=== PATIENT | male | born 1960 | race Caucasian/White ===

== ENCOUNTER 2016-12-21 14:00 | Inpatient (IN) | payer OTHER ==
[~2016-12-21] VITALS: Ht 180.3 cm; Wt 64.2 kg
--- NOTE | ~2016-12-21 | ECHO ---
Transthoracic Echocardiography Report (TTE) Demographics Patient Name ANTIONE FITCH Date of Study 12/22/2016 Patient Number [id number] Visit Number [id number] Date of 1960 Room Number G6337 Gender Male Number Age 56 year(s) Referring Nick Mccray MD Soil Science Teacher Ruiz Elder [facility] Physician Horace Ireland MD Physician Interpreting Belia Batista Air Export Agent Physician Supervising Ordering Horace Ireland MD/MLP Physician Nurse Stress Forming Process Worker Conclusions Contractility Score Summary At rest the following contractility abnormalities were noted: Hypokinesis of the Mid jey-lateral, the Mid anterior, the Basal anterior and the Basal jey-lateral segments. Contractility of all other segments appeared normal. Summary Normal LV wall thickness,internal dimension,EF and WM. Trace TR not adequate to measure pulmonary pressures accurately. Procedure Type of Study TTE procedure:2D Echocardiogram, M-Mode, Doppler , Color Doppler. Procedure Date Date: 12/22/2016 Start: 09:08 AM Study Location: Inpatient Portable Technical Quality: Adequate visualization Indications:Dyspnea/SOB and Coronary artery disease. Patient Status: Routine Rhythm: Sinus tachycardia HR: 92 bpm BP: 120/67 mmHg Allergies - Penicillin. M-Mode/2D Measurements LV Diastolic Dimension: 2.97 cm LV Systolic Dimension: 2.63 cm LV Septum Diastolic: 0.93 cm LV PW Diastolic: 0.9 cm AO Root Dimension: 2.7 cm Cardiac Output: 4.26 l/min AV Cusp Separation: 1.5 cm RV Diastolic Dimension: 2.45 cm LA volume: 31 ml MV EPSS: 0.8 cm LVOT: 1.8 cm RV Base: 3.01 cm LVOT VTI: 18.2 cm RV Mid: 2.2 cm LV Stroke volume: 46.29 ml TAPSE: 2.9 cm TDI-S': 16 cm/s Doppler Measurements AV Peak Velocity: 1.06 m/s MV Peak E-Wave: 0.72 m/s AV Peak Gradient: 4.49 mmHg MV Peak A-Wave: 0.97 m/s AV Mean Gradient: 2 mmHg MV E/A Ratio: 0.74 LVOT Peak Velocity: 0.96 m/s MV P1/2t: 63 msec TR Gradient:20.07 mmHg PV Peak Velocity: 1.3 m/s Estimated RAP:5 mmHg PV Peak Gradient: 6.76 mmHg Estimated RVSP: 25 mmHg Estimated PASP: 25.07 mmHg E' Septal Velocity: 0.1 m/s A' Septal Velocity: 0.14 m/s E' Lateral Velocity: 0.1 m/s A' Lateral Velocity: 0.12 m/s Findings Left Ventricle Normal left ventricle size and function. Right Ventricle Normal right ventricle structure and function. Left Atrium Normal left atrial size. Right Atrium Normal right atrial size. Mitral Valve Normal mitral valve structure and function. Aortic Valve Normal aortic valve structure and function. Tricuspid Valve Trivial tricuspid regurgitation by color Doppler. Pulmonic Valve The pulmonic valve is not well visualized doppler through the valve is normal. Pericardial Effusion No evidence of pericardial effusion. Miscellaneous Visualized portions of the aortic root and ascending aorta appear normal in size. Pleural Effusion No evidence of pleural effusion. Signature dtt: Lynne Celaya dtd: 12/22/16 0908 Physician Self Edit
--- NOTE | ~2016-12-21 | HP ---
PATIENT'S NAME: ANTIONE FITCH [facility] AGE: 56 Y [address] ROOM: [place] [address] LOCATION: GPCU ADMIT DATE: 12/21/2016 History & Physical DISCHARGE DATE: FAMILY PHYSICIAN: PHYSICIAN, UNKNOWN ATTENDING PHYSICIAN: NILA DARNELL V DATE OF SERVICE: CHIEF COMPLAINT: Shortness of breath. HISTORY OF PRESENT ILLNESS: The patient is a transfer from [facility]. This is a 56- year-old male with past medical history of coronary artery disease with stents approximately 7 years ago, who presented to the hospital with approximately 24- 36 hours of complaints of shortness of breath, productive cough, and orthopnea. At the outside facility, the patient was found to be saturating in the 70s on room air. He had a workup which included a chest x-ray showing hyperinflation, ABG showing hypoxia but no CO2 retention, and unremarkable 2 sets of cardiac enzymes and an EKG. He was transferred to [facility] with presumed diagnosis of COPD exacerbation, though he does not carry that diagnosis. At this point, the patient feels considerably better and he is saturating mid 90s on 2 L nasal cannula. REVIEW OF SYSTEMS: He denies any chest pain, nausea, vomiting, diaphoresis, or syncope. PAST MEDICAL HISTORY: Significant for coronary artery disease, status post coronary stenting x2 seven years ago, that is what the patient volunteers. FAMILY HISTORY: Significant for a strong family of heart disease on both sides of the family. SOCIAL HISTORY: He has approximately [id number] of tobacco use, having quit 10 years ago. Denies any toxic habits. He is employed in a [employer] store. CURRENT MEDICATIONS: 1. Aspirin full dose. 2. Metoprolol. 3. Atorvastatin. 4. Cetirizine. PATIENT'S NAME: ANTIONE FITCH [facility] AGE: 56 Y [address] ROOM: [place] [address] LOCATION: GPCU ADMIT DATE: 12/21/2016 History & Physical DISCHARGE DATE: FAMILY PHYSICIAN: PHYSICIAN, UNKNOWN ATTENDING PHYSICIAN: NILA DARNELL V PHYSICAL EXAMINATION: VITAL SIGNS: Temperature 98.6, pulse is 99, respirations are 16, blood pressure is 158/73, and saturating 92% on 4 L nasal cannula. GENERAL APPEARANCE: A well-developed, well-nourished middle-aged male, in no acute distress. EYES: Exam shows pupils are equal and reactive to light. LYMPHATIC: Exam shows no cervical lymphadenopathy. ENDOCRINE: Exam shows no thyromegaly. NEUROLOGICAL: Exam is intact. ENT: Exam reveals no stridor. Some pharyngeal erythema. LUNGS: Exam reveals diffuse expiratory wheezing in all alves. HEART: Exam reveals slight tachycardia with no appreciable murmurs, gallops, or rubs. GI: Exam shows abdomen is soft, nontender, and nondistended. : Exam reveals no costovertebral angle tenderness. VASCULAR: 2+ pedal pulses. MUSCULOSKELETAL: Exam shows unremarkable muscle and joints. SKIN: Warm and dry. PSYCHIATRIC: Exam reveals appropriate mood, cognition, and affect. LABORATORY DATA: Review of studies from the outside facility significant for a chest x-ray which shows no infiltrates, but considerable hyperinflation. Lab results from outside facility show unremarkable basic metabolic profile, negative cardiac enzymes. The ABG showing pH 7.46, pCO2 of 42, O2 of 61, bicarb is 29. BNP is 38. D-dimer is 200 (negative). White count is 18.4, hemoglobin is 16.2, and platelets 310. Influenza swab is negative. EKG shows normal sinus rhythm without any ST-segment or T-wave abnormalities. ASSESSMENT AND PLAN: This is a 56-year-old male who will be admitted with chronic obstructive pulmonary disease exacerbation. Problems to be addressed: 1. Acute hypoxic respiratory failure. This is likely due to chronic obstructive pulmonary disease exacerbation. We will continue the patient on Solu-Medrol. We will plan to transition him to prednisone in 1-2 days. We will put him on Levaquin and nebulizers. We will also put him on a probiotic for GI prophylaxis. 2. Likely undiagnosed chronic obstructive pulmonary disease. I explained to the patient he will have to be seen by either registered health nurse or a regular medical doctor to be evaluated for COPD once we treat this acute episode. 3. Coronary artery disease, status post stenting. Given the fact that he has a cardiac history and he did endorse orthopnea, I will get a 2- dimensional echocardiogram to rule out any possible cardiac source for PATIENT'S NAME: CONSTANTINE ANTIONE L [facility] AGE: 56 Y [address] ROOM: G6337 [place], [place] [address] LOCATION: [facility] ADMIT DATE: 12/21/2016 History & Physical DISCHARGE DATE: FAMILY PHYSICIAN: PHYSICIAN, UNKNOWN ATTENDING PHYSICIAN: NILA DARNELL V his presentation. We will also monitor him on telemetry. 4. Deep venous thrombosis prophylaxis will be instituted if the patient stays in the hospital for more than 48 hours. So at this point, he will be ambulatory. The time dictated to this patient's encounter is 25 minutes. MD ROD MARTIN/alisha /[id number] D: [id number] T: [id number] HISTORY & PHYSICAL
--- NOTE | ~2016-12-21 | DS ---
PATIENT'S NAME: ANTIONE FITCH [facility] AGE: 56 Y [address] ROOM: [address] [address] LOCATION: GPCU ADMIT DATE: 12/21/2016 Discharge Summary DISCHARGE DATE: 12/24/2016 FAMILY PHYSICIAN: Jasper Mckeon MD ATTENDING PHYSICIAN: Jacques Vu V DISCHARGE DIAGNOSES: 1. Acute hypoxic respiratory failure. 2. Chronic, chronic obstructive pulmonary disease, undiagnosed. 3. Coronary artery disease status post CABG in the distant past. 4. Hypercholesterolemia. 5. Ex-smoker. PROCEDURES: None. REASON FOR ADMISSION: The patient was struggling to breathe and hypoxic with cough. LABORATORY DATA: Viral panel showed positive for a rhinovirus. Initial white count in [place] was 18.4 with a left shift. His influenza testing was negative. PH showed 7.46 with CO2 of 42 and O2 at 61 with an O2 saturation of 93%, I believe that was on oxygen. His initial chemistries showed a glucose nonfasting of 115. Protein was high. The remainder was normal. By the time he is on steroids here, his white count went up to 25,000, left-shifted. His chemistries including electrolytes, kidney function, and liver function all normal with GFR greater than 60. Total cholesterol 140, triglycerides 39, HDL 94, and LDL 39 and that was on statin. HOSPITAL COURSE: One of slow improvement. He even as of yesterday was coughing, wheezing, and struggling to breathe. We got him off oxygen and his cough is much more moist today. He has been on 40 of prednisone twice daily, we are going to decrease that in a tapering dose. Medications per nursing med recon. Diet and activity will be as tolerated and follow up with his primary will be in 2 weeks. I went over use of his albuterol inhaler in detail. I told him never to use nonsteroidals while he is on steroids. Just went over his med in detail. Total time of discharge was greater than 30 minutes. MYCHAL PAZ MD PATIENT'S NAME: ANTIONE FITCH [facility] AGE: 56 Y [address] ROOM: [address] [address] [facility] ADMIT DATE: 12/21/2016 Discharge Summary DISCHARGE DATE: 12/24/2016 FAMILY PHYSICIAN: Jasper Mckeon MD ATTENDING PHYSICIAN: Jacques VuJ/alisha /[id number] d: 12/25/16 0249 t: 12/27/16 1614, DISCHARGE SUMMARY
[2016-12-21] MEDS ORDERED: ADVIL200 MG PO (14:45)
[2016-12-21] MEDS ORDERED: ASPIRIN LO-DOSE81 MG PO (14:46)
[2016-12-21] MEDS ORDERED: LIPITOR10 MG PO (14:46)
[2016-12-21] MEDS ORDERED: LOPRESSOR25 MG PO (14:47)
[2016-12-21] MEDS ORDERED: ZYRTEC10 MG PO (14:47)
--- NOTE | 2016-12-21 15:25 | NUR ---
Pt is 56 y/o male admit for COPD exacerbation,hypoxia for hospitalist. Pt alert and oriented x3. Allergy to PCN. Red bracelet on. Hx COPD,[place],stents x2, hypercholest,htn,CAD,rhinitis,psoriasis legs. Resides at home with his . He states yesterday am he woke up with a sore throat. He took some cold medicine throughout the day and went to bed at his usual time. He woke up around 2 am unable to breathe. He went and sat in the recliner for awhile and then tried to lay down but couldn't breathe lying down. He also is coughing up green phlegm. He went to [facility] around 1030 and his O2 sats were in the 70's. He was sent to [facility] and then here via ambulance.
--- NOTE | 2016-12-21 16:23 | NUR ---
Significant Event: Alert/oriented x 3. Vitals stable, on 4L of O2 with saturations 91-92%, orders to keep >90%. Denies pain. 22 gauge saline lock to right antecubital. Lung sounds diminished. Independent in room. Follow up: Monitor O2 needs, IV antibiotics and steroids.
--- NOTE | 2016-12-22 05:07 | NUR ---
Significant Event: A/O, independent in room, SBP 120-130s, HR 70 up to low 100s, with activity, weaned to 2L O2, keeping sats >90%, patient states his cough has improved through night, no pain Follow up:continue with steroids and antibiotics
--- NOTE | 2016-12-22 11:42 | NUR ---
Introduced self and care management services to patient and at bedside. Lives in [place]. Denies anticipating any dc planning needs, denies concerns. Emr Specialist will follow and assist with dc planning as needs identified.
--- NOTE | 2016-12-22 13:05 | NUR ---
Significant Event: Alert/oriented x 3. Vitals stable, remains on 1L of oxygen. Crackles throughout lung alves, productive cough. Independent in room. Voiding adequate amounts per urinal. Nasal wash for respiratory viral panel sent to lab. Follow up: Monitor oxygen needs.
[2016-12-23 03:48] LABS: BASOPHIL % 0.1 %; HEMATOCRIT 45.5 % (37.0-53.0); HEMOGLOBIN 14.8 g/dL (12.0-17.0); IMMATURE GRANULOCYTE # 0.5 K/uL (0.0-0.3); IMMATURE GRANULOCYTE % 1.9 %; LYMPHOCYTE # 1.2 K/uL (0.8-4.0); MCH 28.3 pg (27.0-34.0); MCHC 32.5 gm/dL (32.0-36.5); MONOCYTE % 3.9 %; MPV 10.8 fl (9.4-12.4); NEUTROPHIL # (ANC) 22.2 K/uL (1.4-9.0); NEUTROPHIL % 89.1 %; NRBC % 0 /100WBC (0-0.00); PLATELET COUNT 329 K/uL (150-450); RBC 5.23 M/uL (4.00-6.00); RDW-CV 12.7 % (11.9-14.6)
[2016-12-23 03:49] LABS: WBC 24.9 K/uL (4.0-11.0)
[2016-12-23 04:08] LABS: ALBUMIN 3.6 gm/dL (3.5-5.0); ALK PHOS 67 IU/L (33-138); ALT 19 IU/L (12-78); ANION GAP 14.3 (10.0-19.0); AST 13 IU/L (10-40); BLOOD UREA NITROGEN 17 mg/dL (6-24); CALCIUM 9.1 mg/dL (8.5-10.5); CHLORIDE 106 mMol/L (96-110); CO2 27 mMol/L (22-32); ESTIMATED GFR (MDRD EQUATION) > 60; POTASSIUM 4.3 mMol/L (3.7-5.1); SODIUM 143 mMol/L (135-145); TOTAL BILIRUBIN 0.4 mg/dL (0.0-1.5); TOTAL PROTEIN 7.2 g/dL (6.0-8.4)
--- NOTE | 2016-12-23 05:11 | NUR ---
Significant Event: pATIENT ALERT AND ORIENTED X 3. DENIED PAIN THROUGHOUT SHIFT. PATIENT UP IN ROOM ADLIB WITHOUY ISSUE. LUNGS SLOWLY INPROVING FROM EXPIARTORY WHEEZES TO CLEAR DIM. NO SIGNS OF DISTRESS. Follow up: CONTINUE TO MONITOR PER POC
--- NOTE | 2016-12-23 16:53 | NUR ---
Significant Event:Up in tovar. Desat to 80's to one minute to recover. Weaned to RA. Continues to cough up green thick sputum. Expiratory wheezes to diminished LS. A/O x3. Voiding w/o difficulty. Denies pain. Follow up: Home tomorrow?
--- NOTE | 2016-12-24 05:49 | NUR ---
Significant Event: PATIENT ALERT AND ORIENTED X3. DENIES PAIN AND SHORTNESS OF BREATH. CONTINUES ON RA THROUGHOUT SHIFT. ADEQUATE AND BALANCED INTAKE AND OUTPUT. PATIENT FREQUENTLY VERBALIZES HIS WISHES TO DISCHARGE TO HOME. EXPECTED TO DISCHARGE TODAY. Follow up: CONTINUE TO MONITOR PER POC.
[2016-12-24] MEDS ORDERED: LEVAQUIN500 MG PO (11:48)
[2016-12-24] MEDS ORDERED: COZAAR25 MG PO (11:49)
[2016-12-24] MEDS ORDERED: DELTASONE20 MG PO (11:50)
[2016-12-24] MEDS ORDERED: PHENERGAN WITH480 ML PO (11:54)
[2016-12-24] MEDS ORDERED: PROVENTIL OR V6.7 GM INH (11:57)
--- NOTE | 2016-12-24 14:01 | NUR ---
Discharge Summary: Patient A/O x 3. Vital signs stable: HR 76, RR 16, BP 115/60, O2 saturation 93% on room air, and temperature 98.2 F. Denies pain or shortness of breath. Patient given discharge instructions regarding new medications, medication changes, signs/symptoms to be alert for, following up with primary care physician in 2 weeks, and general care instructions. Patient and verbalize understanding of all instructions and state they have no further questions at this time. IV and monitor discontinued. Immunizations given prior to discharge. Patient left PCU at 1235 per wheelchair to [facility] entrance and then home to self care with . Orville ATKINSON 12/24/16
== END 2016-12-24 12:35 | disposition disaster alternative care site (69) | DRG 189 ==
LOC: GPCU 14:20
PROVIDERS: Family Medicine; ADMIT Internal Medicine
DX: J96.21 Acute and chronic respiratory failure with hypoxia (principal); J44.1 Chronic obstructive pulmonary disease with (acute) exacerbation; I25.10 Atherosclerotic heart disease of native coronary artery without angina pectoris; Z95.5 Presence of coronary angioplasty implant and graft; Z87.891 Personal history of nicotine dependence; Z79.82 Long term (current) use of aspirin; Z23 Encounter for immunization; E78.00 Pure hypercholesterolemia, unspecified
CPT/HCPCS: G0008; G0009; J2920; J7512

== ENCOUNTER → 2017-01-15 | Outpatient (CLI) | payer OTHER ==
[~2017-01-15] MED LIST: ADVIL200 MG PO; ASPIRIN LO-DOSE81 MG PO; COZAAR25 MG PO; DELTASONE20 MG PO; LEVAQUIN500 MG PO; LIPITOR10 MG PO; LOPRESSOR25 MG PO; PHENERGAN WITH480 ML PO; PROVENTIL OR V6.7 GM INH; ZYRTEC10 MG PO
--- NOTE | ~2017-01-15 | PUL ---
PATIENT'S NAME: ANTIONE FITCH [facility] AGE: 56 Y [address] ROOM: [place] [address] LOCATION: [facility] ADMIT DATE: 01/15/2017 Pulmonary DISCHARGE DATE: FAMILY PHYSICIAN: BRADLEY GUERRA MD ATTENDING PHYSICIAN: BRADLEY GUERRA NAME OF PROCEDURE: Pulmonary Function Test DATE OF PROCEDURE: January 15, 2017 TECH: [facility], CLINIC LPN REASON FOR EXAM: COPD RESULTS: 1. FVC was 3.61 liters which is 74% of predicted and low, FEV1 was 1.01 liters which is 27% of predicted and low, and FEV1/FVC was 28% and low. The flow volume curve revealed significant airflow limitation. After bronchodilator administration FVC increased to 4.66 liters which is a 29% increase and FEV1 increased to 1.29 liters which is a 28% increase. FEV1/FVC was 28%. 2. DLCO was 10.9 with an adjusted DLCO of 10.7, which is 49% of predicted and low. 3. Total lung capacity was 9.32 liters which is 139% of predicted and high and residual volume was 5.71 liters which is 246% of predicted and high. PHYSICIAN INTERPRETATION: The patient has very severe airflow limitation with a significant bronchodilator response. His diffusion capacity is moderately low. There is evidence of significant hyperinflation and air trapping. MD ANA CRISTINA DUPREE/pamela /[id number] dtt: 01/19/17 1056 , PETER MAY dtd: 01/18/17 1552
== END | disposition disaster alternative care site (69) ==
LOC: GRTH 01-04 11:00
DX: J96.01 Acute respiratory failure with hypoxia (principal); J44.9 Chronic obstructive pulmonary disease, unspecified; R06.9 Unspecified abnormalities of breathing